=== PATIENT | male | born 1975 | race Caucasian/White ===

== ENCOUNTER 2016-09-17 19:24 | Inpatient (IN) | payer OTHER ==
[2016-09-17] VITALS (9 sets, daily range): BP systolic 104–136; BP diastolic 68–100
[~2016-09-17] VITALS: Ht 182.9 cm; Wt 65.8 kg
[~2016-09-17 19:24] MED LIST: HYDR1TAB PO
[2016-09-17 19:53] LABS: ABG BASE EXCESS -2.2 MMOL/L (-2.5-2.5); ABG HCO3 22 MMOL/L (23-27); ABG OXYGEN SATURATION 98 % (94-100); ABG PCO2 40 MMHG (35-45); ABG PH 7.37 (7.37-7.43); ABG PO2 76 MMHG (79-93); ABG TCO2 23.6 MMOL/L (21.0-31.0)
[2016-09-17 19:54] LABS: ALLENS TEST YES-POS
[2016-09-17 20:00] LABS: BILIRUBIN,URINE NEGATIVE (NEGATIVE); KETONES,URINE 2+ (NEGATIVE); LEUKOCYTE ESTERASE ,URINE NEGATIVE (NEGATIVE); NITRITE,URINE NEGATIVE (NEGATIVE); PH,URINE 5 (5-9); PROTEIN,URINE 2+ (NEGATIVE); UROBILINOGEN,URINE 1 MG/DL (NORMAL)
[2016-09-17] MEDS ORDERED: NALOXONE 2 MG/2 ML (NARCAN) SYR IV ONE (20:00)
--- NOTE | 2016-09-17 20:02 | Diagnostic Imaging Report ---
INDICATION: A 40-year-old male presents with possible carbon monoxide poisoning. COMPARISONS: 07/14/2012. FINDINGS: Single-view chest shows the cardiac contour to be normal. There is central venous congestion with some perihilar and bilateral upper lobe and right basilar atelectatic infiltrates, but no significant consolidations. There is no effusion or pneumothorax. Soft tissues and bony thorax are normal. IMPRESSION: 1. Mild central venous congestion accentuated by the portable technique. 2. Perihilar, bilateral upper lobe, and right basilar atelectatic infiltrates but no confluent consolidations. Dictated by: Dictated on workstation # [id number]
[2016-09-17] MEDS ORDERED: D5 1/2 NS 1000 ML IV SOLUTION 1,000 ML IV ONE (20:07)
[2016-09-17 20:08] LABS: BASOPHILS % (AUTO) 0 % (0-10); EOSINOPHILS % (AUTO) 0 % (0-10); LYMPHOCYTES # (AUTO) 0.9 X 10^3 (1.0-4.0); LYMPHOCYTES % (AUTO) 12 % (12-44); MEAN CORPUSCULAR HEMOGLOBIN 35 PG (25-34); MEAN CORPUSCULAR HGB CONC 38 G/DL (32-36); MEAN CORPUSCULAR VOLUME 93 FL (80-99); MEAN PLATELET VOLUME 9.4 FL (7.4-10.4); MONOCYTES # (AUTO) 0.9 X 10^3 (0.0-1.0); MONOCYTES % (AUTO) 13 % (0-12); NEUTROPHILS # (AUTO) 5.6 X 10^3 (1.8-7.8); NEUTROPHILS % (AUTO) 75 % (42-75); PLATELET COUNT 177 10^3/uL (130-400); RED BLOOD COUNT 4.13 10^6/uL (4.35-5.85); RED CELL DISTRIBUTION WIDTH 12.1 % (10.0-14.5); WHITE BLOOD COUNT 7.4 10^3/uL (4.3-11.0)
[2016-09-17 20:13] LABS: WBC,URINE 0-2 /HPF
[2016-09-17] MEDS ORDERED: D5 1/2 NS 1000 ML IV SOLUTION 1,000 ML IV SCH (20:15)
[2016-09-17 20:17] LABS: INR 1.1 (0.8-1.4); PROTHROMBIN TIME PATIENT 14.3 SEC (12.2-14.7)
[2016-09-17 20:30] LABS: ALANINE AMINOTRANSFERASE 21 U/L (0-55); ANION GAP 10 MMOL/L (5-14); ASPARTATE AMINO TRANSFERASE 22 U/L (5-34); BLOOD UREA NITROGEN 12 MG/DL (7-18); BUN/CREATININE RATIO 14; CALCIUM 8.1 MG/DL (8.5-10.1); CARBON DIOXIDE 21 MMOL/L (21-32); CHLORIDE 108 MMOL/L (98-107); CREATININE SERUM 0.87 MG/DL (0.60-1.30); GFR ESTIMATED > 60; GLUCOSE 131 MG/DL (70-105); POTASSIUM 3.5 MMOL/L (3.6-5.0); SODIUM 139 MMOL/L (135-145); TOTAL PROTEIN 6.1 G/DL (6.4-8.2)
[2016-09-17 20:34] LABS: ACETAMINOPHEN < 10 UG/ML (10-30); ALCOHOL < 10 MG/DL (<10)
--- NOTE | 2016-09-17 20:46 | ED Psychosocial ---
General Chief Complaint: Psych/Social Disorder Stated Complaint: SUICIDE ATTEMPT Nursing Triage Note: Patient was found in shed with generator running, patient was in an enclosed space. patient reportedly took valium. supposedly patient was informed today that his wanted a divorce and he was attempting to take his life. Source: patient, EMS History of Present Illness Time seen by provider: 19:23 Initial Comments PT ARRIVES VIA EMS FROM HOME PT WAS FOUND BY DAUGHTER IN A SMALL ENCLOSED SHED WITH THE GENERATOR RUNNING, AND PT STATES HE TOOK 4-6 VALIUM IN AN EFFORT TO KILL HIMSELF PT STATES "MY BROKE MY HEART" AND APPARENTLY THEIR DIVORCE JUST BECAME FINAL LAST TIME SOMEONE TALKED TO HIM WAS AROUND 1700 OR 1715 ON THE PHONE, ACCORDING TO EMS PT STATES HE TOOK THE PILLS AROUND 1730 AND WENT INTO SHED AND STARTED GENERATOR AROUND THAT SAME TIME PT STATES HE "SMOKED A BOWL OF WEED" TODAY, WHICH HE DOES FREQUENTLY PT STATES HE GOT THE VALIUM "[place] THE [place]" AND HAD BEEN STOWING THEM AWAY PT DID NOT TELL ANYONE HE WAS HAVING THESE THOUGHTS PT DENIES PRIOR HISTORY OF MENTAL ILLNESS, OR SUICIDAL THOUGHTS OR ATTEMPTS IN THE PAST. EMS REPORT THAT PT WAS HAVING AGONAL BREATHING, WAS UNRESPONSIVE AND HAD O2 SAT OF 81% --THEY BAGGED HIM FOR APPROXIMATELY 10 MINUTES, THEN EMS REPORTS THAT PT BECAME MORE RESPONSIVE AND O2 SATS IMPROVED WHEN THEY ATTEMPTED TO PLACE AN ORAL AIRWAY NO NARCAN OR ROMAZICON WAS GIVEN BY EMS PT HAS NO PHYSICAL COMPLAINTS, OTHER THAN DROWSINESS NO HEADACHE NO NAUSEA/VOMITING NO PARESTHESIAS / MOTOR DEFICITS NO CHEST PAIN NO SHORTNESS OF BREATH NO PCP--NOT SEEN DR IN YEARS Allergies and Home Medications Allergies Coded Allergies: No Known Drug Allergies (Unverified , 06/13/12) Home Medications No Active Prescriptions or Reported Meds Constitutional: other (VERY DROWSY) Respiratory: see HPI Cardiovascular: No chest pain Gastrointestinal: No nausea, No vomiting Psychiatric/Neurological: See HPI DepressedDenies Headache, Denies Numbness, Denies Paresthesia, Denies Seizure Past Ozioswx-Xgstua-Ibrxmv Hx Patient Social History Alcohol Use: Occasionally Uses (HEAVY USE/ABUSE IN PAST) Recreational Drug Use: Yes (MARIJUANA) Smoking Status: Current Everyday Smoker (2 PPD) Type Used: Cigarettes 2nd Hand Smoke Exposure: Yes Recent Foreign Travel: No Contact w/Someone Who Travel: No Recent Infectious Disease Expo: No Recent Hopitalizations: No Surgeries HX Surgeries: No Respiratory Hx Respiratory Disorders: No Cardiovascular Hx Cardiac Disorders: No Neurological Hx Neurological Disorders: No Reproductive System Hx Reproductive Disorders: No Genitourinary Hx Genitourinary Disorders: No Gastrointestinal Hx Gastrointestinal Disorders: No Musculoskeletal Hx Musculoskeletal Disorders: No Endocrine Hx Endocrine Disorders: No HEENT HX ENT Disorders: No Cancer Hx Cancer: No Psychosocial Hx Psychiatric Problems: No Integumentary HX Skin/Integumentary Disorder: No Blood Transfusions Hx Blood Disorders: No Physical Exam Vital Signs Vital Sign - Last 12Hours 09/17/16 09/17/16 19:28 20:53 Temp 98.4 Pulse 79 Resp 21 B/P 102/66 Pulse Ox 92 O2 Delivery Room Air O2 Flow Rate 3 Capillary Refill : Less Than 3 Seconds General Appearance: other (DIRTY, MALODOROUS. VERY DROWSY, BUT EASILY AWAKENS AND PT IS ORIENTED X 4, COOPERATIVE, POLITE. ) thin HEENT: PERRL/EOMI Neck: normal inspection Respiratory: normal breath sounds no respiratory distress no accessory muscle use Cardiovascular: regular rate, rhythm no murmur Gastrointestinal: non tender soft Extremities: normal range of motion non-tender normal inspection no pedal edema no calf tenderness normal capillary refill Neurologic/Psychiatric: cash register balancer II-XII nml as tested no motor/sensory deficits oriented x 3 other (MENTATION ABOVE. ) Appearance/Memory: no memory impairment disheveled Behavior/Eye Contact: cooperative other (SPEECH SLURRED) Thoughts/Hallucinations: no apparent hallucinationNo delusions, No flight of ideas, other (PT DEPRESSED WITH CONTINUED SUICIDAL IDEATIONS. PT ASKED RN WHO FOUND HIM, AND WAS TOLD THAT HIS DAUGHTER FOUND HIM AND HE BECAME VERY TEARFUL. ) Skin: normal color warm/dry Progress/Results/Core Measures Results/Orders Lab Results Laboratory Tests Test 09/17/16 19:40 09/17/16 19:44 09/17/16 20:00 09/17/16 20:12 Range/Units Felix Test YES-POS Arterial Blood Base Excess -2.2 -2.5-2.5 MMOL/L Arterial Blood HCO3 22 L 23-27 MMOL/L Arterial Blood Oxygen Saturation 98 94-100 % Arterial Blood Partial Pressure CO2 40 35-45 MMHG Arterial Blood Partial Pressure O2 76 L 79-93 MMHG Arterial Blood Total CO2 23.6 21.0-31.0 MMOL/L Arterial Blood pH 7.37 7.37-7.43 Blood Gas Inspired Oxygen 2L Blood Gas Patient Temperature 98.0 Blood Gas Puncture Site RT RAD Blood Gas Ventilator Setting NO Ur Tricyclic Antidepressants Screen NEGATIVE NEGATIVE Urine Amphetamines Screen NEGATIVE NEGATIVE Urine Bacteria NONE /HPF Urine Barbiturates Screen NEGATIVE NEGATIVE Urine Benzodiazepines Screen POSITIVE H NEGATIVE Urine Bilirubin NEGATIVE NEGATIVE Urine Cannabinoids Screen POSITIVE H NEGATIVE Urine Casts NONE /LPF Urine Clarity CLEAR Urine Cocaine Screen NEGATIVE NEGATIVE Urine Color YELLOW Urine Crystals NONE /LPF Urine Culture Indicated NO Urine Glucose (UA) NEGATIVE NEGATIVE Urine Ketones 2+ H NEGATIVE Urine Leukocyte Esterase NEGATIVE NEGATIVE Urine Methadone Screen NEGATIVE NEGATIVE Urine Methamphetamines Screen NEGATIVE NEGATIVE Urine Mucus MODERATE H /LPF Urine Nitrite NEGATIVE NEGATIVE Urine Opiates Screen NEGATIVE NEGATIVE Urine Oxycodone Screen NEGATIVE NEGATIVE Urine Phencyclidine Screen NEGATIVE NEGATIVE Urine Propoxyphene Screen NEGATIVE NEGATIVE Urine Protein 2+ H NEGATIVE Urine RBC 2-5 H /HPF Urine RBC (Auto) 1+ H NEGATIVE Urine Specific [place] 1.025 H 1.016-1.022 Urine Urobilinogen 1 NORMAL MG/DL Urine WBC 0-2 /HPF Urine pH 5 5-9 Acetaminophen Level < 10 L 10-30 UG/ML Activated Partial Thromboplast Time 25 24-35 SEC Alanine Aminotransferase (ALT/SGPT) 21 0-55 U/L Albumin 4.0 3.2-4.5 G/DL Alkaline Phosphatase 63 40-136 U/L Anion Gap 10 5-14 MMOL/L Aspartate Amino Transf (AST/SGOT) 22 5-34 U/L BUN/Creatinine Ratio 14 Basophils # (Auto) 0.0 0.0-0.1 10^3/uL Basophils (%) (Auto) 0 0-10 % Blood Urea Nitrogen 12 7-18 MG/DL Calcium Level 8.1 L 8.5-10.1 MG/DL Carbon Dioxide Level 21 21-32 MMOL/L Chloride Level 108 H 98-107 MMOL/L Creatinine 0.87 0.60-1.30 MG/DL Eosinophils # (Auto) 0.0 0.0-0.3 10^3/uL Eosinophils (%) (Auto) 0 0-10 % Estimat Glomerular Filtration Rate > 60 Free Thyroxine 1.10 0.70-1.48 NG/DL Glucose Level 131 H 70-105 MG/DL Hematocrit 39 L 40-54 % Hemoglobin 14.6 13.3-17.7 G/DL INR Comment 1.1 0.8-1.4 Lymphocytes # (Auto) 0.9 L 1.0-4.0 X 10^3 Lymphocytes (%) (Auto) 12 12-44 % Magnesium Level 2.0 1.8-2.4 MG/DL Mean Corpuscular Hemoglobin 35 H 25-34 PG Mean Corpuscular Hemoglobin Concent 38 H 32-36 G/DL Mean Corpuscular Volume 93 80-99 FL Mean Platelet Volume 9.4 7.4-10.4 FL Monocytes # (Auto) 0.9 0.0-1.0 X 10^3 Monocytes (%) (Auto) 13 H 0-12 % Neutrophils # (Auto) 5.6 1.8-7.8 X 10^3 Neutrophils (%) (Auto) 75 42-75 % Platelet Count 177 130-400 10^3/uL Potassium Level 3.5 L 3.6-5.0 MMOL/L Prothrombin Time 14.3 12.2-14.7 SEC Red Blood Count 4.13 L 4.35-5.85 10^6/uL Red Cell Distribution Width 12.1 10.0-14.5 % Serum Alcohol < 10 <10 MG/DL Sodium Level 139 135-145 MMOL/L TSH Willacy Testing 5.27 H 0.35-4.94 UIU/ML Total Bilirubin 1.0 0.1-1.0 MG/DL Total Protein 6.1 L 6.4-8.2 G/DL White Blood Count 7.4 4.3-11.0 10^3/uL Carboxyhemoglobin 43.6 H 0.5-2.5 % Test 09/17/16 22:28 09/17/16 23:00 Range/Units Carboxyhemoglobin 26.5 H 0.5-2.5 % Felix Test YES-POS Arterial Blood Base Excess 0.0 -2.5-2.5 MMOL/L Arterial Blood HCO3 25 23-27 MMOL/L Arterial Blood Oxygen Saturation 100 94-100 % Arterial Blood Partial Pressure CO2 42 35-45 MMHG Arterial Blood Partial Pressure O2 140 H 79-93 MMHG Arterial Blood Total CO2 26.0 21.0-31.0 MMOL/L Arterial Blood pH 7.38 7.37-7.43 Blood Gas Inspired Oxygen 3L Blood Gas Patient Temperature 97.0 Blood Gas Puncture Site LEFT RADIAL Blood Gas Ventilator Setting NO My Orders Orders-DELVIS LLAMAS DO Saline Lock/Iv-Start (09/17/16 19:31) Ekg Tracing (09/17/16 19:31) O2 (09/17/16 19:31) Monitor-Rhythm Ecg Trace Only (09/17/16 19:31) Acetaminophen (09/17/16 19:31) Alcohol (09/17/16 19:31) Arterial Blood Gas (09/17/16 19:31) Carboxyhemoglobin (09/17/16 19:31) Cbc With Automated Diff (09/17/16 19:31) Comprehensive Metabolic Panel (09/17/16 19:31) Drug Screen Stat (Urine) (09/17/16 19:31) Magnesium (09/17/16 19:31) Protime With Inr (09/17/16 19:31) Partial Thromboplastin Time (09/17/16 19:31) Thyroid Analyzer (09/17/16 19:31) Ua Culture If Indicated (09/17/16 19:31) Chest 1 View, Ap/Pa Only (09/17/16 19:31) Naloxone Injection (Narcan Injection) (09/17/16 20:00) D5 1/2 Ns 1000 Ml Iv Solution (Dextrose (09/17/16 20:07) D5 1/2 Ns 1000 Ml Iv Solution (Dextrose (09/17/16 20:15) Free T4 (Free Thyroxine) (09/17/16 20:00) Medications Given in ED Current Medications Medications Dose Ordered Sig/Armin Route Start Time Stop Time Status Last Admin Dose Admin Dextrose/Sodium Chloride 1,000 ml STK-MED ONCE IV 09/17/16 20:07 09/17/16 20:10 DC 09/17/16 20:16 Naloxone HCl 2 mg 2 mg ONCE ONCE IV 09/17/16 20:00 09/17/16 20:01 DC 09/17/16 20:16 2 MG Vital Signs/I&O Vital Sign - Last 12Hours 09/17/16 09/17/16 09/17/16 09/17/16 19:28 20:53 21:05 21:12 Temp 98.4 97.3 Pulse 79 70 83 Resp 21 14 10 B/P 102/66 104/77 Pulse Ox 92 97 97 O2 Delivery Room Air Nasal Cannula O2 Flow Rate 3 3.00 09/17/16 09/17/16 09/17/16 09/17/16 21:15 21:27 21:30 21:45 Pulse 87 80 74 81 Resp 13 14 13 B/P 112/80 105/68 105/73 Pulse Ox 96 100 88 O2 Delivery Nasal Cannula Nasal Cannula Nasal Cannula O2 Flow Rate 3.00 3.00 3.00 09/17/16 09/17/16 09/17/16 09/17/16 22:00 22:15 22:30 23:00 Pulse 84 76 80 74 Resp 14 10 13 15 B/P 119/94 136/100 120/83 111/81 Pulse Ox 97 98 96 96 O2 Delivery Nasal Cannula Nasal Cannula Nasal Cannula Nasal Cannula O2 Flow Rate 3.00 3.00 3.00 3.00 09/17/16 09/18/16 09/18/16 23:30 00:00 01:00 Temp 97.0 Pulse 80 73 78 Resp 16 22 16 B/P 104/78 85/62 93/67 Pulse Ox 97 92 92 O2 Delivery Nasal Cannula Nasal Cannula Nasal Cannula O2 Flow Rate 3.00 3.00 3.00 Blood Pressure Mean: 78 Progress Note : Progress Note NO DETERIORATION IN PT'S CONDITION DURING ER STAY ECG Initial ECG Impression Time: 19:31 Initial ECG Rate: 81 Initial ECG Rhythm: Normal Sinus Initial ECG Comparisson: No Previous ECG Available Diagnostic Imaging Comments CXR--DIFFUSE BILATERAL PATCHY INFILTRATES, NO AREAS OF CONSOLIDATION, MILD CENTRAL VENOUS CONGESTION--PER RADIOLOGIST REPORT @ 2006 Reviewed: Reviewed by Me Departure Communication Progress Notes 2024--SPOKE WITH DR. JARRETT, ACCEPTS PT FOR ADMIT Impression Impression: Primary Impression: Suicide attempt Additional Impressions: Carbon monoxide poisoning Intentional benzodiazepine overdose Disposition: ADMITTED INPATIENT Condition: Stable Decision to Admit Reason: Admit from ER (General) Decision to Admit/Date: Sep 17, 2016 Time/Decision to Admit Time: 20:25 Departure-Patient Inst. Referrals: NO,LOCAL PHYSICIAN (PCP/Family) Primary Care Physician Scripts No Active Prescriptions or Reported Meds DELVIS LLAMAS DO Sep 17, 2016 20:46
[2016-09-17] MEDS: D5 1/2 NS 1000 ML IV SOLUTION 1,000 ML IV SCH (21:30)
[2016-09-17 23:09] LABS: ABG HCO3 25 MMOL/L (23-27); ABG OXYGEN SATURATION 100 % (94-100); ABG PCO2 42 MMHG (35-45); ABG PH 7.38 (7.37-7.43); ABG PO2 140 MMHG (79-93); ALLENS TEST YES-POS
[2016-09-18] VITALS (11 sets, daily range): BP systolic 82–127; BP diastolic 46–77
[2016-09-18] MEDS: D5 1/2 NS 1000 ML IV SOLUTION 1,000 ML IV SCH (03:08)
[2016-09-18 04:32] LABS: BASOPHILS % (AUTO) 0 % (0-10); EOSINOPHILS % (AUTO) 0 % (0-10); LYMPHOCYTES # (AUTO) 1.8 X 10^3 (1.0-4.0); LYMPHOCYTES % (AUTO) 24 % (12-44); MEAN CORPUSCULAR HEMOGLOBIN 33 PG (25-34); MEAN CORPUSCULAR HGB CONC 35 G/DL (32-36); MEAN CORPUSCULAR VOLUME 94 FL (80-99); MEAN PLATELET VOLUME 9.4 FL (7.4-10.4); MONOCYTES # (AUTO) 0.7 X 10^3 (0.0-1.0); MONOCYTES % (AUTO) 10 % (0-12); NEUTROPHILS # (AUTO) 4.8 X 10^3 (1.8-7.8); NEUTROPHILS % (AUTO) 65 % (42-75); PLATELET COUNT 187 10^3/uL (130-400); RED BLOOD COUNT 4.14 10^6/uL (4.35-5.85); RED CELL DISTRIBUTION WIDTH 12.2 % (10.0-14.5); WHITE BLOOD COUNT 7.4 10^3/uL (4.3-11.0)
[2016-09-18 04:49] LABS: ABG BASE EXCESS 0.4 MMOL/L (-2.5-2.5); ABG HCO3 25 MMOL/L (23-27); ABG OXYGEN SATURATION 98 % (94-100); ABG PCO2 43 MMHG (35-45); ABG PH 7.38 (7.37-7.43); ABG PO2 87 MMHG (79-93); ABG TCO2 26.2 MMOL/L (21.0-31.0)
[2016-09-18 04:50] LABS: ALLENS TEST NOT INDICATED; PATIENT TEMP NOT INDICATED
[2016-09-18 05:24] LABS: ALANINE AMINOTRANSFERASE 18 U/L (0-55); ALBUMIN 3.7 G/DL (3.2-4.5); ANION GAP 10 MMOL/L (5-14); ASPARTATE AMINO TRANSFERASE 20 U/L (5-34); BILIRUBIN,TOTAL 1.1 MG/DL (0.1-1.0); BLOOD UREA NITROGEN 10 MG/DL (7-18); BUN/CREATININE RATIO 13; CALCIUM 8.4 MG/DL (8.5-10.1); CARBON DIOXIDE 21 MMOL/L (21-32); CHLORIDE 108 MMOL/L (98-107); CREATININE SERUM 0.77 MG/DL (0.60-1.30); GFR ESTIMATED > 60; GLUCOSE 123 MG/DL (70-105); MAGNESIUM 2.1 MG/DL (1.8-2.4); PHOSPHORUS 3.1 MG/DL (2.3-4.7); POTASSIUM 3.8 MMOL/L (3.6-5.0); SODIUM 139 MMOL/L (135-145); TOTAL PROTEIN 5.7 G/DL (6.4-8.2)
[2016-09-18 05:30] LABS: TROPONIN I < 0.30 NG/ML (<0.30)
[2016-09-18] MEDS ORDERED: KCL 20 MEQ TAB (K-DUR) PO SCH (06:00)
[2016-09-18] MEDS ORDERED: MAGNESIUM 1 GM/100 ML IVPB 100 ML IV SCH (06:00)
[2016-09-18] MEDS ORDERED: POTASSIUM CL 10MEQ/50ML IVPB 50 ML IV SCH (06:00)
--- NOTE | 2016-09-18 06:43 | Pulmonary Consultation ---
History of Present Illness History of Present Illness Date of Consultation 09/18/16 06:38 Date of Admission History of Present Illness 40yo who presented after suicidal attempt he was found by daughter in a small enclosed shed with a generator running. Pt took 4-6 Valium. Pt recently went through a divorce. No prior hx of suicidal ideation. Upon EMS arrival pt had agonal breathing and was unresponsive with Sp02 of 81%. They bagged him for 10min and pt bacame more responsive. Carboxyhemoglobin was 43.6 now down to 13. UDS + for benzos and marijuana. Pt has no complaints currently. Allergies and Home Medications Allergies Coded Allergies: No Known Drug Allergies (Unverified , 06/13/12) Home Medications No Active Prescriptions or Reported Meds Past Wlqzxoy-Nhfkbw-Cnijpw Hx Patient Social History Alcohol Use: Occasionally Uses (HEAVY USE/ABUSE IN PAST) Recreational Drug Use: Yes (MARIJUANA) Drug of Choice: POSITIVE FOR MARIJUANA Smoking Status: Current Everyday Smoker (2 PPD) Type Used: Cigarettes 2nd Hand Smoke Exposure: Yes Recent Foreign Travel: No Contact w/Someone Who Travel: No Recent Infectious Disease Expo: No Recent Hopitalizations: No Physical Abuse Screen: No Sexual Abuse: No Immunizations Up To Date Tetanus Booster (TDap): Unknown PED Vaccines UTD: No Seasonal Allergies Seasonal Allergies: No Surgeries HX Surgeries: No Respiratory Hx Respiratory Disorders: No Cardiovascular Hx Cardiac Disorders: No Neurological Hx Neurological Disorders: No Reproductive System Hx Reproductive Disorders: No Genitourinary Hx Genitourinary Disorders: No Gastrointestinal Hx Gastrointestinal Disorders: No Musculoskeletal Hx Musculoskeletal Disorders: No Endocrine Hx Endocrine Disorders: No HEENT HX ENT Disorders: No Cancer Hx Cancer: No Psychosocial Hx Psychiatric Problems: No Behavioral Health Disorders: Suicide Attempts, Depression Integumentary HX Skin/Integumentary Disorder: No Blood Transfusions Hx Blood Disorders: No Adverse Reaction to a Blood Tr: No Exam Exam Vital Signs Date Time Temp Pulse Resp B/P Pulse Ox O2 Delivery O2 Flow Rate FiO2 09/18/16 06:00 71 15 106/69 Nasal Cannula 3.00 09/18/16 05:30 67 14 108/70 Nasal Cannula 3.00 09/18/16 04:00 3.00 09/18/16 04:00 97.7 68 19 87/54 94 Nasal Cannula 3.00 09/18/16 03:00 73 15 96/59 95 Nasal Cannula 3.00 09/18/16 02:00 72 15 94/55 95 Nasal Cannula 3.00 09/18/16 01:00 79 09/18/16 01:00 78 16 93/67 92 Nasal Cannula 3.00 09/18/16 00:00 97.0 73 22 85/62 92 Nasal Cannula 3.00 09/17/16 23:30 80 16 104/78 97 Nasal Cannula 3.00 09/17/16 23:00 74 15 111/81 96 Nasal Cannula 3.00 09/17/16 22:30 80 13 120/83 96 Nasal Cannula 3.00 09/17/16 22:15 76 10 136/100 98 Nasal Cannula 3.00 09/17/16 22:00 84 14 119/94 97 Nasal Cannula 3.00 09/17/16 21:45 81 13 105/73 88 Nasal Cannula 3.00 09/17/16 21:30 74 14 105/68 100 Nasal Cannula 3.00 09/17/16 21:27 80 09/17/16 21:15 87 13 112/80 96 Nasal Cannula 3.00 09/17/16 21:12 83 10 104/77 97 Nasal Cannula 3.00 09/17/16 21:05 97.3 09/17/16 20:53 70 14 97 3 09/17/16 19:28 98.4 79 21 102/66 92 Room Air I & O 09/18/16 06:59 Intake Total 0 ml Output Total 550 ml Balance -550 ml General Appearance: No Apparent Distress, WD/WN HEENT: PERRL/EOMI, TMs Normal, Normal ENT Inspection Neck: Full Range of Motion, Normal Inspection, Non Tender Respiratory: Chest Non Tender, No Accessory Muscle Use, No Respiratory Distress , Decreased Breath Sounds Cardiovascular: Regular Rate, Rhythm, No Edema, No Gallop Capillary Refill: Less Than 3 Seconds Gastrointestinal: non tender, soft Extremity: No Calf Tenderness Neurologic/Psychiatric: Alert, Oriented x3 Skin: Normal Color, Warm/Dry Results Lab Laboratory Tests 09/17/16 20:00 09/18/16 04:13 Assessment/Plan Assessment/Plan Suicidal attempt s/p carbon monoxide poisoning -Oxygen -monitor -mental health consult Marijuana use Clinical Quality Measures DVT/VTE Risk/Contraindication: Risk Factor Score Per Nursin RFS Level Per Nursing on Admit: 2=Moderate DAMIEN NATHAN DO Sep 18, 2016 06:43
[2016-09-18] MEDS ORDERED: FLU TRIvalent (5 YOA+) 2016-17 (AFLURIA) 0.5 ML IM ONE (07:15)
--- NOTE | 2016-09-18 08:52 | Diagnostic Imaging Report ---
INDICATION: Carbon monoxide poisoning. The lungs are clear. The heart size and vascularity within normal limits. There is no effusion or pneumothorax. An old unhealed distal third right clavicular fracture deformity projects in good alignment. No acute appearing abnormality. IMPRESSION: No acute appearing abnormality. Dictated by: Dictated on workstation # [id number]
--- NOTE | 2016-09-18 09:45 | Short Stay Summary-Hospitalist ---
HPI History of Present Illness: HPI/Chief Complaint CC: Suicide attempt with combustion engine in garage HPI: This is a 40-year-old white male that presented to the emergency room after found in a garage with the combustion engine running in attempting to kill himself. Apparently his daughter found him called 911 and was transported to the emergency room. He was able to be stabilized and ultimately monitored in the ICU and will provide any type of support the patient needs an manager social media but he declines any psychiatric evaluation and inpatient admission. 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) Alcohol Use: Occasionally Uses (HEAVY USE/ABUSE IN PAST) Recreational Drug Use: Yes (MARIJUANA) Drug of Choice: POSITIVE FOR MARIJUANA Smoking Status: Current Everyday Smoker (2 PPD) Type Used: Cigarettes 2nd Hand Smoke Exposure: Yes Physical Abuse Screen: No Sexual Abuse: No Recent Foreign Travel: No Contact w/other who traveled: No Recent Hopitalizations: No Recent Infectious Disease Expo: No Immunizations Up To Date Tetanus Booster (TDap): Unknown Seasonal Allergies Seasonal Allergies: No Surgeries HX Surgeries: No Respiratory Hx Respiratory Disorders: No Cardiovascular Hx Cardiovascular Disorders: No Neurological Hx Neurological Disorders: No Reproductive System Hx Reproductive Disorders: No Genitourinary Hx Genitourinary Disorders: No Gastrointestinal Hx Gastrointestinal Disorders: No Musculoskeletal Hx Musculoskeletal Disorders: No Endocrine Hx Endocrine Disorders: No HEENT HX ENT Disorders: No Cancer Hx Cancer: No Psychosocial Hx Psychiatric Problems: Yes Behavioral Health Disorders: Suicide Attempts, Depression Integumentary HX Skin/Integumentary Disorder: No Blood Transfusions Hx Blood Disorders: No Adverse Reaction to a Blood Tr: No Review of Systems Constitutional: see HPI EENTM: no symptoms reported Respiratory: no symptoms reported Cardiovascular: no symptoms reported Gastrointestinal: no symptoms reported Genitourinary: no symptoms reported Musculoskeletal: no symptoms reported Skin: no symptoms reported Psychiatric/Neurological: Depressed All Other Systems Reviewed Negative Unless Noted: Yes Physical Exam Physical Exam Vital Signs Vital Sign - Last 12Hours 09/17/16 09/17/16 19:28 20:53 Temp 98.4 Pulse 79 Resp 21 B/P 102/66 Pulse Ox 92 O2 Delivery Room Air O2 Flow Rate 3 Capillary Refill : Less Than 3 Seconds General Appearance: No Apparent Distress WD/WN Eyes: Bilateral Eye Normal Inspection, Bilateral Eye PERRL HEENT: PERRL/EOMI Normal ENT Inspection Pharynx Normal Neck: Full Range of Motion Normal Inspection Non Tender Supple Carotid Bruit Respiratory: Chest Non Tender Lungs Clear Normal Breath Sounds No Accessory Muscle Use No Respiratory Distress Cardiovascular: Regular Rate, Rhythm No Edema No Gallop No JVD No Murmur Normal Peripheral Pulses Gastrointestinal: Normal Bowel Sounds No Organomegaly No Pulsatile Mass Non Tender Soft Back: Normal Inspection No CVA Tenderness No Vertebral Tenderness Extremity: Normal Capillary Refill Normal Inspection Normal Range of Motion Non Tender No Calf Tenderness No Pedal Edema Neurologic/Psychiatric: Alert Oriented x3 No Motor/Sensory Deficits Normal Mood/Affect Skin: Normal Color Warm/Dry Lymphatic: No Adenopathy Results Results/Procedures Lab Laboratory Tests 09/17/16 20:00 09/18/16 04:13 Short Stay Diagnosis Discharge Diagnosis-Short Stay Admission Diagnosis Assessment: Suicide attempt now asymptomatic in signed contract to not harm himself but declines psychiatric evaluation and management Smoker Final Discharge Diagnosis Assessment: Suicide attempt now asymptomatic in signed contract to not harm himself but declines psychiatric evaluation and management Smoker Slight elevated TSH asymptomatic but normal free T4 marijuana use Conclusion Plan Plan: Discharge planning Social support Clinical Quality Measures DVT/VTE Risk/Contraindication: Risk Factor Score Per Nursin RFS Level Per Nursing on Admit: 2=Moderate MELLISA KELSEY DO Sep 18, 2016 09:45
[2016-09-18] MEDS ORDERED: CATHETER FLUSH 10 ML SYR IV PRN (10:45)
== END 2016-09-18 11:10 | disposition home or self-care (01) | DRG 918 ==
LOC: ER 19:24 → EDUNIT# 19:24 → ICU 20:42
PROVIDERS: ADMIT Internal Medicine; ATTEND Internal Medicine
DX: T58.2X2A Toxic effect of carbon monoxide from incomplete combustion of other domestic fuels, intentional self-harm, initial encounter (principal); T42.4X2A Poisoning by benzodiazepines, intentional self-harm, initial encounter; F17.210 Nicotine dependence, cigarettes, uncomplicated; F12.90 Cannabis use, unspecified, uncomplicated; F32.9 Major depressive disorder, single episode, unspecified
CPT/HCPCS: 36415; 71010; 80053; 80306; 80320; 80329; 81000; 82375; 82805; 83605; 83735; 84100; 84439; 84443; 84484; 85025; 85610; 85730; 87081; 93005; 93041; 96374; 96375